=== PATIENT | male | born 1940 | race Caucasian/White ===

== ENCOUNTER 2022-04-15 03:13 | Outpatient (CLI) | payer MEDICARE, OTHER, SELFPAY ==
[2022-04-15 09:27] LABS: ALT 24 U/L (16-63); AST 20 U/L (15-37); Albumin 3.9 g/dL (3.4-5.0); Alkaline Phosphatase 83 U/L (46-116); Anion Gap 4.1 mmol/L (3-11); BUN 18 mg/dL (7-18); Bilirubin, Total 1.4 mg/dL (0.2-1.0); CO2 31.9 mmol/L (21.0-32.0); CREATININE 1.2 mg/dL (0.70-1.30); Calcium 9.4 mg/dL (8.5-10.1); Chloride 102 mmol/L (98-107); Estimated GFR 60.38 (mL/min/1.73m2); Glucose 104 mg/dL (74-106); Potassium 4.5 mmol/L (3.5-5.1); Sodium 138 mmol/L (136-145); Total Protein 7.5 g/dL (6.4-8.2)
== END 2022-04-15 03:14 | disposition home or self-care (01) ==
LOC: LBO 03:13
PROVIDERS: PCP Family Medicine; Visit Provider Family Medicine
DX: E78.5 Hyperlipidemia, unspecified (principal)
CPT/HCPCS: 36415; 80053

== ENCOUNTER → 2022-04-21 01:23 | Outpatient (CLI) | payer MEDICARE, OTHER, SELFPAY ==
--- NOTE | 2022-04-21 07:15 | DI.US_ITS ---
Exam(s) US ABDOMEN EXAM: US ABDOMEN CLINICAL HISTORY: Intermittent central abdominal pain,r10.9 TECHNIQUE: Ultrasound of complete upper abdomen performed using standard protocol. COMPARISON: US ABDOMEN ULTRASOUND (P) from 12/11/2014 CT ABD PELVIS WITH CONTRAST from 12/13/2014 FINDINGS: Apparently there has been interval drainage of a right hepatic lobe abscess subsequent to the CT scan of 12/13/2014. There is no ascites evident. LIVER: Liver size upper normal. There is a 9 x 7 millimeter finding in the right hepatic lobe which GALLBLADDER/BILIARY: There are no gallstones. No gallbladder wall edema nor pericholecystic fluid. The common hepatic duct isnot dilated, measuring 4mm at the level of kelsi hepatis. PANCREAS: There is no evidence of obvious pancreatic mass nor dilatation of the pancreatic duct. SPLEEN: Mildly enlarged. Measures 17 cm length. KIDNEYS:Right kidney appears unremarkable. There is mild hydronephrosis in left kidney. ABDOMINAL AORTA: There is no evidence of abdominal aortic aneurysm. IVC: Normal dia4.meter where visualized. IMPRESSION: 1. No evidence of cholelithiasis nor dilatation of the biliary tree. 2. Previously present large abscess seen in the right hepatic lobe on CT scan of 2014 is no longer s een. 3. There is mild-moderate hydronephrosis of the left kidney evident. This was also evident on prior CT scan and was suspicious for an element of UPJ obstruction. No hydronephrosis seen on the opposite- right side. 4. Splenomegaly is also again noted. DATA REPOSITORY:
== END ==
PROVIDERS: PCP Family Medicine; Visit Provider Family Medicine
DX: R10.9 Unspecified abdominal pain (principal); R16.1 Splenomegaly, not elsewhere classified
CPT/HCPCS: 76700